=== PATIENT | male | born 1955 | race African-American/Black ===

== ENCOUNTER → 2019-05-18 | Outpatient (CLI) | payer SELFPAY ==
[~2019-05-18] MED LIST: ALLOPURINOL; ASPI-482 PO; lisinopril; simvastatin
--- NOTE | 2019-05-18 15:13 | RAD ---
EXAM: Head CT without contrast. HISTORY: Syncope. TECHNIQUE: Computed tomographic images of the head were obtained without contrast. *One or more of the following individualized dose reduction techniques were utilized for this examination: 1. Automated exposure control. 2. Adjustment of the mA and/or kV according to patient size. 3. Use of iterative reconstruction technique. COMPARISON: None. FINDINGS: There is no acute or subacute extra-axial or intraparenchymal hemorrhage. There is no mass effect or midline shift. There is no hydrocephalus. The bales-white matter differentiation pattern is intact. The visualized portions of the orbits, paranasal sinuses and mastoid air cells are unremarkable. No suspicious calvarial lesion is seen. IMPRESSION: No acute intracranial findings. Electronically signed by: Alanna Cho MD (05/18/2019 3:10 PM) [place] [id number]
== END | disposition home or self-care (01) ==
LOC: CT 14:48
PROVIDERS: ATTEND Family Medicine
DX: R55 Syncope and collapse (principal)
CPT/HCPCS: 70450